=== PATIENT | female | born 1940 | race Caucasian/White ===

== ENCOUNTER 2019-01-05 15:00 | Outpatient (CLI) | payer MEDICARE ==
--- NOTE | 2019-01-05 16:26 | MRI ---
MRI Lumbar Spine WO Con HISTORY: Back pain and bilateral leg pain worse on right. COMPARISON: None. FINDINGS: The vertebral bodies are normal in height. Disc narrowing is seen at the T11-12 and T12-L1 levels. There is no significant periaortic adenopathy. The visualized portions of the kidneys appear unremarkable. T12-L1: Unremarkable. L1-2: Degenerative facet changes without canal or foraminal stenosis. L2-3: No significant canal or foraminal stenosis. L3-4: Moderate degenerative facet changes are seen without significant canal or foraminal stenosis. L4-5: Moderate degenerative facet changes at this level no central canal stenosis. Mild to moderate l eft-sided foraminal narrowing is noted. L5-S1: A right paracentral disc protrusion is seen this potentially impresses on the right S1 nerve r oot. No significant canal stenosis. Mild left-sided foraminal narrowing. IMPRESSION: Right paracentral disc protrusion at L5-S1 with impression on the right S1 nerve root. Mi ld to moderate left-sided foraminal narrowing at L4-5 and L5-S1.
== END 2019-01-05 15:01 | disposition home or self-care (01) ==
LOC: BICMRI 15:00
PROVIDERS: ATTEND Anesthesiology Pain Medicine
DX: M54.16 Radiculopathy, lumbar region (principal); M48.061 Spinal stenosis, lumbar region without neurogenic claudication; M48.07 Spinal stenosis, lumbosacral region; M51.27 Other intervertebral disc displacement, lumbosacral region
CPT/HCPCS: 72148